=== PATIENT | female | born 1990 | race Caucasian/White ===

== ENCOUNTER 2019-06-26 05:30 | Inpatient (IN) | payer OTHER ==
[2019-06-26] MEDS ORDERED: PROMETHAZINE HCL 25 MG/1 ML VIAL IVPB ONE (06:30)
[2019-06-26] MEDS ORDERED: BUTORPHANOL TARTRATE 2 MG/ML VIAL IVPUSH ONE (06:30)
[2019-06-26] MEDS ORDERED: DEXTROSE 5%-LACTATED RINGERS 1,000 ML IV SCH (06:30)
[2019-06-26 06:31] LABS: BASO % 1.1 % (0-2.0); EOS % 0.8 % (0-4.5); HEMATOCRIT 36.5 % (32.4-45.2); HEMOGLOBIN 12.5 GM/dL (10.7-15.3); LYMPH % 9.4 % (8-40); MCH 29.8 pg (25.7-33.7); MCHC 34.1 g/dl (32.0-36.0); MEAN CELL VOLUME 87.3 fl (80-96); MEAN PLT VOLUME 9.8 fl (7.5-11.1); MONO % 3.4 % (3.8-10.2); NEUT % 85.3 % (42.8-82.8); PLATELET COUNT 266 K/MM3 (134-434); RBC 4.18 M/mm3 (3.60-5.2); RDW 14.5 % (11.6-15.6); WHITE BLOOD COUNT 10.6 K/mm3 (4.0-10.0)
[2019-06-26 06:45] LABS: INR 0.96 (0.83-1.09); PROTHROMBIN TIME (PATIENT) 11.3 SEC (9.7-13.0)
[2019-06-26 06:47] LABS: ACTIVATED PTT 26.3 SECONDS (25.2-36.5)
[2019-06-26 07:01] LABS: CALCIUM 9.2 mg/dL (8.5-10.1); CREATININE 0.5 mg/dL (0.55-1.3); POTASSIUM 3.9 mmol/L (3.5-5.1)
[2019-06-26] MEDS ORDERED: PROMETHAZINE HCL 25 MG/1 ML VIAL ONE (07:17)
[2019-06-26] MEDS ORDERED: BUTORPHANOL TARTRATE 1 MG/ML VIAL ONE ×2 (07:17)
--- NOTE | 2019-06-26 07:45 | HP ---
Past Medical History - Primary Care Physician PCP:: Kirit Daniel - Admission Chief Complaint: 38 weeks, labor History of Present Illness: 28 yo f g 2 p1001 38 weeks, in labor cx 3 cm ,80 vx -3 mi, fhr cat 1 regular contraction, , care at [facility] care, History Source: Patient Limitations to Obtaining History: No Limitations, Language Barrier - Past Medical History ...: 2 ...Para: 1 ...Term: 1 ...: 0 ...Spon : 0 ...Induced : 0 ...Multiple Gestation: 0 ...EDC by Sono: 07/05/19 - Past Surgical History Hx Myomectomy: No Hx Transabdominal Cerclage: No - Smoking History Smoking history: Never smoked Have you smoked in the past 12 months: No - Alcohol/Substance Use Hx Alcohol Use: No Home Medications - Allergies Allergies/Adverse Reactions: Allergies Allergy/AdvReac Type Severity Reaction Status Date / Time shrimp Allergy Verified 06/26/19 06:23 - Home Medications Home Medications: Ambulatory Orders Vits96/Iron Fum/Folic [ Tablet] 1 tab PO DAILY 06/11/19 Ibuprofen 600 mg PO Q6H PRN #30 tablet 06/27/19 Physical Exam - Maternity Vital Signs: Vital Signs Temperature 97.9 F 06/26/19 06:26 Pulse Rate 83 06/26/19 06:26 Respiratory Rate 20 06/26/19 06:26 Blood Pressure 123/89 06/26/19 06:26 O2 Sat by Pulse Oximetry (%) - Labs Lab Results: CBC, BMP 06/26/19 06:10 06/26/19 06:10
[2019-06-26 12:55] VITALS: BMI 28.8
[2019-06-26] MEDS ORDERED: FENTANYL/BUPIVACAINE/NS/PF - PCEA - 50 ML DISP.SYRIN EP ONE (13:11)
[2019-06-26] MEDS ORDERED: NALOXONE HCL 0.4 MG/ML VIAL IVPUSH PRN (13:11)
[2019-06-26] MEDS ORDERED: BUPIVACAINE HCL/PF 2.5 MG/ML - 30 ML VIAL IJ ONE (13:13)
[2019-06-26] MEDS ORDERED: FENTANYL/BUPIVACAINE/NS/PF - PCEA - 50 ML DISP.SYRIN EP SCH (13:15)
[2019-06-26] MEDS ORDERED: OXYTOCIN 30 UNITS in 0.9% NS 30 UNIT/500 ML INFUS.BAG IVPB SCH (14:15)
[2019-06-26] MEDS ORDERED: OXYTOCIN 30 UNITS in 0.9% NS 30 UNIT/500 ML INFUS.BAG IVPB ONE (14:15)
--- NOTE | 2019-06-26 14:17 | PN ---
Progress Note (short form) - Note Progress Note: cx 6 cm 80 vx -1 membrane bulging, fhr cat 1, irregular contraction, advised pitocin , risks discussed, AROM, clear
[2019-06-26] MEDS ORDERED: OXYTOCIN 20 UNITS in 0.9% NS 20 UNIT/1,000 ML INFUS.BAG IV ONE (15:48)
[2019-06-26] MEDS ORDERED: BENZOCAINE 20% 57 GM BOTTLE TP PRN (16:11)
[2019-06-26] MEDS ORDERED: WITCH HAZEL 50% (TUCKS) 40 PAD/JAR PAD TP PRN (16:11)
[2019-06-26] MEDS ORDERED: BENZOCAINE 28 GM HEMORRHOIDAL OINTMENT TP PRN (16:11)
[2019-06-26] MEDS ORDERED: BISACODYL 10 MG SUPP.RECT RC PRN (16:11)
[2019-06-26] MEDS ORDERED: METHYLERGONOVINE MALEATE 0.2 MG/1 ML AMP IM PRN (16:11)
[2019-06-26] MEDS ORDERED: OXYTOCIN 20 UNITS in 0.9% NS 20 UNIT/1,000 ML INFUS.BAG IV SCH (16:15)
[2019-06-26] MEDS ORDERED: D5W-LR W/ 20 UNITS OXYTOCIN 20 UNIT/1,000 ML INFUS.BAG IV SCH (16:15)
--- NOTE | 2019-06-26 16:32 | PN ---
Delivery - Delivery Vaginal Delivery: Spontaneous Type of Anesthesia: Epidural (cx full , head delivered JESSICA , no cord , ant. post , shoulder with no difficulty . live baby boy, 9/9 , placenta complete . 2 cm first degree laceration repaired with 20 chromic , EBL 300 cc , no complication) Episiotomy/Laceration: 1st degree Delivery, Single - [place] Feeding Plan Initial Plan: Elected not to breastfeed exclusively throughout hospitalization
[2019-06-26] MEDS: FERROUS SO4 325 MG TABLET (FP) PO SCH (22:24)
[2019-06-26] MEDS: IBUPROFEN 600 MG TABLET (FP) PO PRN (22:24)
[2019-06-26] MEDS: ACETAMINOPHEN 325 MG TABLET (FP) PO PRN (22:25)
--- NOTE | 2019-06-27 07:10 | PN ---
Post Progress Note - Subjective Subjective: Pain controlled. No fevers/chills. Lochia c/w menses. Post Day: 1 Type of Delivery: Vital Signs: Vital Signs Temperature 98.4 F 06/26/19 21:49 Pulse Rate 80 06/26/19 21:49 Respiratory Rate 20 06/26/19 21:49 Blood Pressure 106/72 06/26/19 21:49 O2 Sat by Pulse Oximetry (%) 99 06/26/19 18:00 Uterus: Yes: Fundus below umbilicus Abdomen/GI: Yes: Abdomen soft, Tolerating PO Lochia: Yes: Rubra Lochia, amount: Small Extremities: Yes: Calves non-tender Perineum: Yes: Intact Activity: Ambulating - Labs Labs: CBC WBC 10.6 K/mm3 (4.0-10.0) H 06/26/19 06:10 RBC 4.18 M/mm3 (3.60-5.2) 06/26/19 06:10 Hgb 12.5 GM/dL (10.7-15.3) 06/26/19 06:10 Hct 36.5 % (32.4-45.2) 06/26/19 06:10 MCV 87.3 fl (80-96) 06/26/19 06:10 MCH 29.8 pg (25.7-33.7) 06/26/19 06:10 MCHC 34.1 g/dl (32.0-36.0) 06/26/19 06:10 RDW 14.5 % (11.6-15.6) 06/26/19 06:10 Plt Count 266 K/MM3 (134-434) 06/26/19 06:10 MPV 9.8 fl (7.5-11.1) 06/26/19 06:10 Absolute Neuts (auto) 9.0 K/mm3 (1.5-8.0) H 06/26/19 06:10 Neutrophils % 85.3 % (42.8-82.8) H 06/26/19 06:10 Lymphocytes % 9.4 % (8-40) D 06/26/19 06:10 Monocytes % 3.4 % (3.8-10.2) L 06/26/19 06:10 Eosinophils % 0.8 % (0-4.5) 06/26/19 06:10 Basophils % 1.1 % (0-2.0) D 06/26/19 06:10 Nucleated RBC % 0 % (0-0) 06/26/19 06:10 Assessment/Plan 28yo s/p , PPD#1 Routine PP care OOB, ambulate Labs pending D/C to home PPD#2 Antione Singh MD
[2019-06-27 07:38] LABS: BASO % 0.4 % (0-2.0); EOS % 1.3 % (0-4.5); HEMATOCRIT 32.2 % (32.4-45.2); LYMPH % 14.9 % (8-40); MCH 30.2 pg (25.7-33.7); MCHC 34.2 g/dl (32.0-36.0); MEAN CELL VOLUME 88.5 fl (80-96); MEAN PLT VOLUME 10.1 fl (7.5-11.1); MONO % 5.1 % (3.8-10.2); NEUT % 78.3 % (42.8-82.8); PLATELET COUNT 216 K/MM3 (134-434); RBC 3.64 M/mm3 (3.60-5.2); RDW 14.6 % (11.6-15.6); WHITE BLOOD COUNT 12.7 K/mm3 (4.0-10.0)
[2019-06-27] MEDS: FERROUS SO4 325 MG TABLET (FP) PO SCH ×2 (10:59→21:18)
[2019-06-27] MEDS: PRENATAL VITAMINS W/ FOLIC ACID TABLET (FP) PO SCH (10:59)
[2019-06-27] MEDS: ACETAMINOPHEN 325 MG TABLET (FP) PO PRN (21:18)
[2019-06-27] MEDS: IBUPROFEN 600 MG TABLET (FP) PO PRN (21:18)
[2019-06-27] MEDS ORDERED: SENNOSIDES/DOCUSATE COMBO (SENNA PLUS) TABLET (UD) PO PRN (22:00)
[2019-06-27 22:29] VITALS: TEMP 97.8
[2019-06-28] MEDS: IBUPROFEN 600 MG TABLET (FP) PO PRN (08:29)
[2019-06-28] MEDS: ACETAMINOPHEN 325 MG TABLET (FP) PO PRN (08:30)
[2019-06-28] MEDS: FERROUS SO4 325 MG TABLET (FP) PO SCH (11:02)
[2019-06-28] MEDS: PRENATAL VITAMINS W/ FOLIC ACID TABLET (FP) PO SCH (11:02)
--- NOTE | 2019-06-28 11:08 | DS ---
Physical Examination Vital Signs: Vital Signs Temperature 97.8 F 06/27/19 22:28 Pulse Rate 86 06/27/19 22:28 Respiratory Rate 20 06/27/19 22:28 Blood Pressure 110/72 06/27/19 22:28 O2 Sat by Pulse Oximetry (%) 99 06/26/19 18:00 Constitutional: Yes: Well Nourished, No Distress, Calm Eyes: Yes: WNL, Conjunctiva Clear, EOM Intact HENT: Yes: WNL, Atraumatic, Normocephalic Neck: Yes: WNL, Supple, Trachea Midline Cardiovascular: Yes: WNL, Regular Rate and Rhythm Respiratory: Yes: WNL, Regular, CTA Bilaterally Gastrointestinal: Yes: WNL, Normal Bowel Sounds Musculoskeletal: Yes: WNL Extremities: Yes: WNL Edema: No Integumentary: Yes: WNL Neurological: Yes: WNL, Alert, Oriented ...Motor Strength: WNL Psychiatric: Yes: WNL Labs: CBC, BMP 06/27/19 06:39 06/26/19 06:10 Discharge Summary Problems reviewed: Yes Reason For Visit: ADMIT LABOR Procedures: Principal: Hospital Course: Patient presented in labor She had an uncomplicated She met all milestones She was discharged home on PPD#2 M. MD Samantha Condition: Stable - Instructions Diet, Activity, Other Instructions: Regular Diet Follow up in 4-6 weeks for your visit Referrals: Tanya Singh MD [Staff Physician] - Disposition: HOME - Home Medications Comprehensive Discharge Medication List: Ambulatory Orders Vits96/Iron Fum/Folic [ Tablet] 1 tab PO DAILY 06/11/19 Ibuprofen 600 mg PO Q6H PRN #30 tablet 06/27/19
[2019-06-28 15:13] VITALS: BP 115/73; PULSE 68
== END 2019-06-28 11:36 | disposition home or self-care (01) | DRG 560 ==
LOC: JLDR 05:30 → J3W 18:08
PROVIDERS: ADMIT Obstetrics & Gynecology; ATTEND Obstetrics & Gynecology
PROC: 10E0XZZ Delivery of Products of Conception, External Approach (ICD-10-PCS; principal; 2019-06-26)
PROC: 0HQ9XZZ Repair Perineum Skin, External Approach (ICD-10-PCS; 2019-06-26)
DX: O70.0 First degree perineal laceration during delivery (principal); Z3A.38 38 weeks gestation of pregnancy; Z37.0 Single live birth
CPT/HCPCS: 36415; 59409; 80048; 85025; 85610; 85730; 86593; 86850; 86900; 86901

== ENCOUNTER 2019-06-30 18:17 | Emergency (ER) | payer OTHER ==
--- NOTE | 2019-06-30 18:49 | PDOC ---
Rapid Medical Evaluation Chief Complaint: Pain, Acute Time Seen by Provider: 06/30/19 18:29 Medical Evaluation: Allergies Allergy/AdvReac Type Severity Reaction Status Date / Time shrimp Allergy Verified 06/26/19 06:23 06/30/19 18:47 CC: left leg swelling. Vaginal delivery 06/26/19 PE: swelling to dorsum of left foot. No deformity or bony tenderness. No calf tenderness. Orders: sono Patient will proceed to the ER for further evaluation. Discharge Disposition - Diagnosis Swelling of left foot - Discharge Dispostion Condition at time of disposition: Stable - Referrals - Patient Instructions - Post Discharge Activity
[2019-06-30 18:54] VITALS: BP 123/75; PULSE 89; TEMP 98.2; BMI 25.6
--- NOTE | 2019-06-30 20:15 | PDOC ---
History of Present Illness - General Chief Complaint: Pain, Acute Stated Complaint: LT FOOT SWOLLEN Time Seen by Provider: 06/30/19 18:29 - History of Present Illness Initial Comments: 06/30/19 20:14 28-year-old female presents for evaluation of left leg swelling right. She is 5 days her leg swelled up about 4 days ago. No fevers. Past History - Past Medical History Allergies/Adverse Reactions: Allergies Allergy/AdvReac Type Severity Reaction Status Date / Time shrimp Allergy Verified 06/26/19 06:23 Home Medications: Ambulatory Orders Vits96/Iron Fum/Folic [ Tablet] 1 tab PO DAILY 06/11/19 Ibuprofen 600 mg PO Q6H PRN #30 tablet 06/27/19 Asthma: No Cancer: No Cardiac Disorders: No COPD: No Diabetes: No HTN: No Seizures: No Thyroid Disease: No - Immunization History Immunization Up to Date: No - Psycho Social/Smoking Cessation Hx Smoking History: Never smoked Have you smoked in the past 12 months: No Information on smoking cessation initiated: No Hx Alcohol Use: No Drug/Substance Use Hx: No Hx Substance Use Treatment: No Review of Systems - Review of Systems Musculoskeletal: Yes: See HPI *Physical Exam - Vital Signs Last Vital Signs Temp Pulse Resp BP Pulse Ox 98.2 F 89 18 123/75 98 06/30/19 18:46 06/30/19 18:46 06/30/19 18:46 06/30/19 18:46 06/30/19 18:46 - Physical Exam Comments: 06/30/19 20:14 Left lower extremity neurovascularly intact thigh and calf are soft and nontender and floppy. No gross sensorimotor deficits. Medical Decision Making - Medical Decision Making 06/30/19 20:14 Doppler negative for DVT patient may be safely discharged home and follow-up with [facility] Discharge - Discharge Information Problems reviewed: Yes Clinical Impression/Diagnosis: Swelling of left foot Condition: Stable Disposition: HOME - Admission No - Follow up/Referral - Patient Discharge Instructions Additional Instructions: Return to the emergency room for further issues and without fail, please follow- up with your carpenter assembler in 1 to 2 days for further evaluation and treatment options. - Post Discharge Activity
== END 2019-06-30 20:21 | disposition home or self-care (01) ==
LOC: JERFT 18:17 → JER 18:17 → JERFT 20:21
DX: O90.89 Other complications of the puerperium, not elsewhere classified (principal); R22.42 Localized swelling, mass and lump, left lower limb; Z91.013 Allergy to seafood
CPT/HCPCS: 93971-TC; 99281-25